=== PATIENT | male | born 1985 | race Caucasian/White ===

== ENCOUNTER 2020-12-09 15:49 | Emergency (ER) | payer OTHER, SELFPAY ==
--- NOTE | 2020-12-09 15:56 | PC.NURSE ---
after registration, stated needed to go back outside to get phone.
[2020-12-09 16:00] VITALS: BP 129/84; PULSE 89; RESP 18; TEMP 36.4; O2SAT 100
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
--- NOTE | 2020-12-09 16:11 | PC.NURSE ---
has been unable to give ua spec. Experience Headphones has given multiple cups of water.
--- NOTE | 2020-12-09 16:16 | PC.NURSE ---
exam done with telepathist and rn at bedside. had penile discharge that was yellow colored with foul smell.
--- NOTE | 2020-12-09 16:31 | PC.NURSE ---
aware of need for ua spec. prior to medication tx.
--- NOTE | 2020-12-09 17:09 | PC.NURSE ---
at [id number] was still unable to give ua spec. requested to go outside to smoke and is aware of need for ua spec. that certified endoscopy technician has all medications ordered and all discharge papers ready. angrily stated about missing world that gave respect. was reassured that all d/c is ready but certified endoscopy technician prefers pt to stay in room until spec. can be collected, med. given, and proper d/c done. aware of need for ua spce.
--- NOTE | 2020-12-09 17:43 | PC.NURSE ---
has been in br to attempt spec. collection.
[2020-12-09] MEDS: metroNIDAZOLE 250 MG TABLET 2000 MG PO (17:52)
[2020-12-09] MEDS: AZITHROMYCIN 250 MG TABLET 1000 MG PO (17:52)
[2020-12-09] MEDS: cefTRIAXone 250 MG VIAL 500 MG IM (17:53)
[2020-12-09] MEDS: LIDOCAINE HCL 1% LOCAL INJ 20 ML VIAL INFILTRATE (17:54)
== END 2020-12-09 18:20 | disposition home or self-care (01) ==
PROVIDERS: Emergency Provider Nurse Practitioner Family
DX: Z20.2 Contact with and (suspected) exposure to infections with a predominantly sexual mode of transmission (principal); F17.210 Nicotine dependence, cigarettes, uncomplicated
CPT/HCPCS: 81003; 87086; 87088; 87491; 87591; 87661; 96372; 99213; A9270; G0463; J0696

== ENCOUNTER 2021-03-28 06:22 | Emergency (ER) | payer OTHER, SELFPAY ==
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
[2021-03-28 06:43] VITALS: BP 118/82; PULSE 83; RESP 18; TEMP 36.9; O2SAT 99
--- NOTE | 2021-03-28 07:28 | PC.NURSE ---
ordered pt breakfast at this time.
[2021-03-28] MEDS: HYDROcodone/acetaminophen (*CRX) 5-325 MG TABLET 1 TAB PO (07:32)
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
--- NOTE | 2021-03-28 08:25 | PC.NURSE ---
[id number] CONTACTED [facility]@ [phone], SPOKE WITH ARGENIS. STATES SHE WILL CONTACT [facility] [employer] [facility] AND RETURN CALL.
--- NOTE | 2021-03-28 08:27 | PC.NURSE ---
pt requesting another breakfast tray. Called dietary to order
[2021-03-28 08:44] VITALS: BP 106/71; PULSE 78; O2SAT 99
--- NOTE | 2021-03-28 08:44 | PC.NURSE ---
[id number]-SPOKE WITH ARGENIS @ [facility] THEY WILL NOT BE COMING OUT FOR EVALUATION.
== END 2021-03-28 08:52 | disposition home or self-care (01) ==
PROVIDERS: Emergency Provider Emergency Medicine
DX: S60.212A Contusion of left wrist, initial encounter (principal); S43.402A Unspecified sprain of left shoulder joint, initial encounter; M19.012 Primary osteoarthritis, left shoulder; Y00.XXXA Assault by blunt object, initial encounter
CPT/HCPCS: 73030; 73110; 99284; A9270

== ENCOUNTER 2022-09-24 11:04 | Emergency (ER) | payer OTHER, SELFPAY ==
[2022-09-24 12:46] VITALS: BP 133/86; PULSE 75; RESP 18; TEMP 36.7; O2SAT 100
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
== END 2022-09-24 14:05 | disposition home or self-care (01) ==
PROVIDERS: Emergency Provider Nurse Practitioner Family
DX: L72.9 Follicular cyst of the skin and subcutaneous tissue, unspecified (principal); F17.210 Nicotine dependence, cigarettes, uncomplicated
CPT/HCPCS: 99213; G0463